=== PATIENT | female | born 2000 | race African-American/Black ===

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

== ENCOUNTER 2022-02-03 21:28 | Emergency (ER) | payer SELFPAY ==
[2022-02-03] MEDS ORDERED: Ketorolac Tromethamine 30 MG/ML VIAL ONE (22:14)
== END 2022-02-03 22:41 | disposition home or self-care (01) ==
LOC: ERS 21:28
DX: K03.81 Cracked tooth (principal); Z87.891 Personal history of nicotine dependence
CPT/HCPCS: 96372; 99282; J1885

== ENCOUNTER 2022-10-03 17:53 | Emergency (ER) | payer SELFPAY | END 2022-10-03 18:56 | disposition left against medical advice (07) | LOC: ERS 17:53 | DX: Z53.21 Procedure and treatment not carried out due to patient leaving prior to being seen by health care provider (principal) ==